=== PATIENT | male | born 1960 | race Caucasian/White ===

== ENCOUNTER 2018-05-18 22:28 | Emergency (ER) | payer OTHER ==
[~2018-05-18] VITALS: Ht 172.7 cm; Wt 68.0 kg
[2018-05-18] MEDS ORDERED: ATORVASTATIN CA40 MG (22:31)
== END 2018-05-19 14:19 | disposition home or self-care (01) ==
LOC: ER 22:28
DX: N39.0 Urinary tract infection, site not specified (principal)

== ENCOUNTER 2023-09-29 11:59 | Emergency (ER) | payer OTHER ==
[~2023-09-29] VITALS: Ht 165.1 cm; Wt 72.6 kg
[~2023-09-29 11:59] MED LIST: ATORVASTATIN CA40 MG
[2023-09-29] MEDS ORDERED: LOSARTAN POTASSI1 GM MC (12:22)
[2023-09-29 15:08] LABS: HEMATOCRIT 43.1 % (39.0-48.0); HEMOGLOBIN 14.8 g/dL (13-16.00); MEAN CORPUSCULAR HEMOGLOBIN 30.3 pg (27.00-32.0); MEAN CORPUSCULAR HGB CONC 34.4 g/dl (32.0-36.0); PLATELET COUNT 279 K/uL (150-450); RED BLOOD COUNT 4.89 M/uL (4.00-6.00); RED CELL DISTRIBUTION WIDTH 13.6 % (11.5-14.5)
[2023-09-29 15:09] LABS: URINE APPEARANCE Clear; URINE BILIRRUBIN Negative (NEGATIVE); URINE BLOOD Small; URINE COLOR Yellow; URINE GLUCOSE Negative (NEGATIVE); URINE LEUKOCYTE Negative; URINE NITRATE Negative; URINE PROTEIN Negative (NEGATIVE); URINE UROBILINOGEN 0.2 E.U./dl
[2023-09-29 15:13] LABS: URINE BACTERIA 6.2 uL (0.0-1933)
[2023-09-29 15:42] LABS: URINE EPITHELIAL CELLS 0.4 uL (0.0-38.8)
[2023-09-29 15:44] LABS: ALBUMIN 3.8 gm/dL (3.4-5.0); BILIRUBIN TOTAL 0.53 mg/dL (0.3-1.2); CALCIUM 8.9 mg/dL (8.5-10.1); CREATININE SERUM 1.09 mg/dL (0.70-1.30); GFR 69.48; GLOBULINA 3.7 G/DL (2.4-3.5); POTASSIUM 4.02 mEq/L (3.5-5.1); TOTAL PROTEIN 7.5 gm/dL (6.4-8.2)
== END 2023-09-29 17:53 ==
LOC: ER 11:59
PROVIDERS: Nurse Practitioner Family
DX: R55 Syncope and collapse (principal); E78.00 Pure hypercholesterolemia, unspecified; I10 Essential (primary) hypertension; I72.8 Aneurysm of other specified arteries; K57.30 Diverticulosis of large intestine without perforation or abscess without bleeding